=== PATIENT | male | born 1985 ===

== ENCOUNTER 2017-07-13 06:12 | Observation (INO) | payer BC ==
[2017-07-13 06:12] VITALS: BMI 24.0
[2017-07-13] MEDS ORDERED: Absorbable Gelatin Sponge Size 100 ONE (08:01)
[2017-07-13] MEDS ORDERED: Bacitracin Ointment 30 GM TUBE ONE (08:01)
[2017-07-13] MEDS ORDERED: Thrombin Topical 5,000 Int Units Spray Kit ONE (08:02)
--- NOTE | 2017-07-13 08:13 | ED PDOC ---
Lower Extremity Pain/Injury Time Seen by Provider: 07/13/17 07:20 Chief Complaint (Nursing): Lower Extremity Problem/Injury Chief Complaint (Provider): Ankle Pain History Per: Patient History/Exam Limitations: no limitations Onset/Duration Of Symptoms: Other (x1 month) Current Symptoms Are (Timing): Still Present Additional Complaint(s): 31 year old male presents to ED with complaints of left ankle pain x1 month and has no past medical history. Patient states that at time of onset he had sprained his left ankle and resulting XR showed no fracture. Reports that outpatient MRI shows a lateral ligamental tear in the left ankle, and that it has become difficult to bear weight. PCP: Jw Rosario III - Ankle/Foot Description Of Injury: Twisted Past Medical History Reviewed: Historical Data, Nursing Documentation, Vital Signs Vital Signs: Last Vital Signs Temp 97.9 F 07/13/17 06:37 Pulse 66 07/13/17 06:37 Resp 16 07/13/17 06:37 BP 143/91 H 07/13/17 06:37 Pulse Ox 97 07/13/17 06:37 - Medical History PMH: No Chronic Diseases - Surgical History Surgical History: No Surg Hx - Family History Family History: States: Unknown Family Hx - Living Arrangements Living Arrangements: With Family - Immunization History Hx Tetanus Toxoid Vaccination: No Hx Influenza Vaccination: No Hx Pneumococcal Vaccination: No - Home Medications Home Medications: Ambulatory Orders Medication Instructions Recorded Ibuprofen [Motrin] 400 mg PO ONCE PRN 06/21/17 oxyCODONE/Acetaminophen [Percocet 1 ea PO Q4H PRN #30 tab 07/13/17 5/325 mg Tab] - Allergies Allergies/Adverse Reactions: Allergies Allergy/AdvReac Type Severity Reaction Status Date / Time No Known Allergies Allergy Verified 07/13/17 06:37 Wells Criteria for PE - Wells Criteria for Pulmonary Embolism Clinical Signs and Symptoms of DVT: No P.E is #1 Diagnosis, or Equally Likely: No Heart Rate >100: No Immobilization at least 3 days;Surgery previous 4 weeks: No Previous, objectively diagnosed PE or DVT: No Hemoptysis: No Malignancy w/treatment within 6 months, or palliative: No Total Score: 0 Review of Systems ROS Statement: Except As Marked, All Systems Reviewed And Found Negative Musculoskeletal: Positive for: Other (Left ankle pain) Physical Exam - Reviewed Nursing Documentation Reviewed: Yes Vital Signs Reviewed: Yes - Physical Exam Appears: Positive for: Non-toxic, No Acute Distress Extremity: Positive for: Tenderness (tenderness to left ankle and to left lateral malleolus), Capillary Refill (<2 seconds). Negative for: Normal ROM ( painful ROM to left ankle), Deformity Neurologic/Psych: Positive for: Alert, Oriented. Negative for: Motor/Sensory Deficits - ECG O2 Sat by Pulse Oximetry: 97 (RA) Pulse Ox Interpretation: Normal Medical Decision Making Medical Decision Makin Initial impression: ankle sprain, ligamental tear of left ankle Initial plan: * Call Dr. Rosario XR LEFT ANKLE FINDINGS 06/21/2017 Prominent lateral malleolar soft tissue swelling. No evidence of acute displaced fracture or dislocation. Impression: Prominent lateral malleolar soft tissue swelling. If pain persists, consider MRI. [address] Rosario, who will admit patient under his service. Scribe Attestation: Documented by Edwige Alvarez acting as a scribe Artemio Negrete MD. Scribe Attestation: All medical record entries made by the Scribe were at my direction and personally dictated by me. I have reviewed the chart and agree that the record accurately reflects my personal performance of the history, physical exam, medical decision making, and the department course for this patient. I have also personally directed, reviewed, and agree with the discharge instructions and disposition. Disposition - Clinical Impression Clinical Impression: Ankle fracture - Patient ED Disposition Is Patient to be Admitted: Yes Discussed With : Jw Rosario III Doctor Will See Patient In The: Hospital Counseled Patient/Family Regarding: Studies Performed, Diagnosis - Disposition Disposition Time: 08:15 Condition: FAIR - Pt Status Changed To: Hospital Disposition Of: Observation (OBS OR) - POA Present On Arrival: Falls Or Trauma
--- NOTE | 2017-07-13 08:15 | CP.SDSHP ---
Same Day Surgery H & P - History Proposed Procedure: Left ankle ligament reconstruction Pre-Op Diagnosis: Left ankle anterior talofibular ligament tear - Previous Medical/Surgical History Comments: Denies PMH/PSH - Allergies Allergies: Allergies No Known Allergies Allergy (Verified 07/13/17 06:37) - Physical Exam Vital Signs: Vital Signs 07/13/17 06:37 Temperature 97.9 F Pulse Rate 66 Respiratory 16 Rate Blood Pressure 143/91 H O2 Sat by Pulse 97 Oximetry Mental Status: Alert & Oriented x3 Heart: WNL Lungs: WNL - {Optional Preform as Required} Integument: WNL Ortho: Other (TTP lateral ankle, +DP/PT Pulses, sensation intact, minimal swelling) Other Pertinent Findings: imaging at outside facility - Impression Impression: 31M with severe left ankle pain, inability to ambulate with left ankle ATFL rupture for ankle ligament reconstruction. Smoking cessation advised. [place] [employer] patient report reviewed, no CDS. Patient counseled on the risks of addiction, physical or psychological dependence, and overdose associated with opioid drugs and the danger of taking opioid drugs with alcohol and other central nervous system depressants, and cautioned patient on storage and disposal Pt. Evaluated Today:Candidate for Anesthesia & Procedure: Yes - Date & Time Date: 07/13/17 Time: 08:18 Short Stay Discharge - Short Stay Discharge Admitting Diagnosis/Reason for Visit: LEFT ANKLE PAIN Disposition: HOME/ ROUTINE Past Patient History - Past Social History Smoking Status: Heavy Smoker > 10 Cigarettes Daily - PSYCHIATRIC Hx Substance Use: No - SURGICAL HISTORY Hx Surgeries: No - ANESTHESIA Hx Anesthesia: No
[2017-07-13] MEDS ORDERED: Succinylcholine 200 mg/10 ml Inj IV ONE (08:24)
[2017-07-13] MEDS ORDERED: Propofol 10 mg/ml Inj (20 ML) ONE ×2 (08:24→10:59)
[2017-07-13] MEDS ORDERED: Ropivacaine 0.5% 30ML IV ONE (08:30)
[2017-07-13] MEDS ORDERED: Lactated Ringer's 1,000 ML IV ONE (08:45)
--- NOTE | 2017-07-13 08:49 | CP.PCM.HP ---
History of Present Illness - History of Present Illness History of Present Illness: Orthopedic consultation Dr. Rosario 31M complains of left ankle pain x 3 weeks after twisting his ankle. He presents to ER complaining of severe left ankle pain and inability to ambulate. He has been using crutches. Present on Admission - Present on Admission Any Indicators Present on Admission: No Review of Systems - Review of Systems All systems: reviewed and no additional remarkable complaints except - Musculoskeletal Musculoskeletal: As Per HPI Past Patient History - Past Medical History & Family History Past Medical History?: No - Past Social History Smoking Status: Heavy Smoker > 10 Cigarettes Daily - PSYCHIATRIC Hx Substance Use: No - SURGICAL HISTORY Hx Surgeries: No - ANESTHESIA Hx Anesthesia: No Meds Allergies/Adverse Reactions: Allergies Allergy/AdvReac Type Severity Reaction Status Date / Time No Known Allergies Allergy Verified 07/13/17 06:37 Physical Exam - Constitutional Appears: Well, No Acute Distress - Head Exam Head Exam: ATRAUMATIC - Respiratory Exam Respiratory Exam: NORMAL BREATHING PATTERN - Expanded Lower Extremities Exam Left Ankle exam: tenderness Neuro vacular tendon exam: no vascular compromise (+DP/PT pulses, sensation intact) - Neurological Exam Neurological exam: Alert, Oriented x3 - Psychiatric Exam Psychiatric exam: Normal Affect, Normal Mood - Skin Skin Exam: Dry, Intact, Normal Color, Warm Results - Vital Signs Recent Vital Signs: Last Vital Signs Temp 97.9 F 07/13/17 06:37 Pulse 66 07/13/17 06:37 Resp 16 07/13/17 06:37 BP 143/91 H 07/13/17 06:37 Pulse Ox 97 07/13/17 08:40 Assessment & Plan (1) Sprain of anterior talofibular ligament of left ankle Assessment and Plan: imaging at outside facility patient found to have ATFL rupture d/w Dr. Rosario NPO for ligament reconstruction PT NWB elevation ice for OR Smoking cessation advised. [place] [employer] patient report reviewed, no CDS. Patient counseled on the risks of addiction, physical or psychological dependence, and overdose associated with opioid drugs and the danger of taking opioid drugs with alcohol and other central nervous system depressants, and cautioned patient on storage and disposal Status: Acute
[2017-07-13] MEDS ORDERED: Rocuronium 10 mg/ml (5 ml) ONE (09:08)
[2017-07-13] MEDS ORDERED: Esmolol 100 mg/10ml Inj IV ONE (09:24)
[2017-07-13] MEDS ORDERED: Desflurane Inhalation Anesthetic Liq (240 ml) ONE (09:24)
[2017-07-13] MEDS ORDERED: Bacitracin OINT 15GM TOP ONE ×2 (09:35→10:50)
[2017-07-13] MEDS ORDERED: Neostigmine 1:1000 (1 mg/ml) Inj ONE (10:48)
[2017-07-13] MEDS ORDERED: Naloxone 0.4 mg/ml Inj (Adult) ONE (11:16)
[2017-07-13] MEDS ORDERED: Oxycodone/Acetaminophen 5/325 mg Tab PO PRN (11:24)
[2017-07-13] MEDS ORDERED: HYDROmorphone 0.5 mg/0.5 ml ISec IVP PRN (11:28)
--- NOTE | 2017-07-13 11:28 | PCM.SURG1 ---
Surgeon's Initial Post Op Note - Surgeon's Notes Surgeon: Marlene Senior Svp: VALENTIN Whitehead Type of Anesthesia: General Endo, Block Regional Anesthesia Administered By: DR ceballos Pre-Operative Diagnosis: gr 3 rupture anterior talofibular ligament L ankle Operative Findings: complete grade 3 rupture Anterior talofibular ligament rupture Post-Operative Diagnosis: same Operation Performed: Primary repair Anterior talofibular ligament rupture. ankle arthrotomy and debridement. \evaluation/manipuilatin of L ankle under anaestheisa/fluoroscopy. \applx short arm postreior splint Specimen/Specimens Removed: N/A Estimated Blood Loss: EBL {In ML}: 5 Blood Products Given: N/A Drains Used: No Drains Post-Op Condition: Good Date of Surgery/Procedure: 07/13/17 Time of Surgery/Procedure: 09:35 (time in room/anaesthesia indcution time8:45)
--- NOTE | 2017-07-13 11:28 | PCM.ANESB2 ---
Popliteal Nerve Block - Popliteal Nerve Block Date of Procedure: 07/13/17 Anesthesiologist: lin Pre-Procedure Diagnosis: L ankle sprain Post-Procedure Diagnosis: same Procedure Performed: Popliteal Nerve Block Left - Procedure Popliteal Nerve Block: This procedure was explained to the patient that it is for post-operative pain management. Consent was obtained after a thorough discussion with the patient regarding the benefits and possible complications of local anesthetic block of the sciatic nerve at the popliteal level. The patient was brought to the operating room and standard monitors are applied. Time-out was held with the circulating nurse to confirm the correct surgery and the appropriate block. After applying oxygen by nasal cannula and administering IV Sedation, patient's operative leg was gently raised and supported and the groove in between the biceps femoris and vastus lateralis muscles was carefully palpated. The skin approximately 8cm above the popliteal crease was then marked. The ultrasound transducer was then applied to the posterior thigh approximately 8cm above the popliteal crease in the transverse plane and the sciatic nerve before its division was visualized lateral to the popliteal artery and in between the bicep femoris and semimembranosus/semitendinosus muscles. After identification, the lateral portion of the thigh was prepped with Betadine solution three times and Lidocaine 1% was injected subcutaneously for topical anesthesia. At this point, a # 21 gauge Stimuplex insulated 4 inch needle was inserted into pre-marked area and advanced in a perpendicular direction. The needle was inserted above the ultrasound transducer in-plane towards the sciatic nerve in a [id number] direction. Needle advancement was performed carefully under direct ultrasound visualization. Nerve stimulator was used and dorsiflexion of the left foot was elicited at a current of __2.0___ MA. After repeated negative aspiration, __1___cc of 0.5 % __ropivicaine was injected and this was flowed with __19____ cc of __0.5____% ___ropivicaine ___. Under ultrasound guidance the local anesthetics were observed surrounding sciatic nerve . The needle was removed intact and sterile dressing was applied. The patient tolerated the popliteal nerve block well with stable vital signs and was subsequently prepared for the surgery.
--- NOTE | 2017-07-13 12:54 | RAD ---
PROCEDURE: Left Ankle Radiographs. Three views of the left ankle obtained with overlying fiberglass nidia splint that partially obscures fine soft tissue and bone detail COMPARISON: No prior study available for comparison HISTORY: Pt in PACU the, s/p ankle reconstruction. FINDINGS: Current study reveals metallic skin closure jeni overlying the distal left fibula and extending anteriorly overlying the lateral margins of the bones of the midfoot. Mild soft tissue swelling. Small amount subcutaneous air. Clinical correlation with surgical history. IMPRESSION: Postoperative changes lateral aspect left ankle as described. No evidence of acute displaced fracture nor dislocation. Heart
[2017-07-13 13:39] VITALS: RESP 18
[2017-07-13 16:47] VITALS: BP 128/68; PULSE 74; TEMP 97.8
--- NOTE | 2017-07-13 17:10 | RAD ---
PROCEDURE: Intraoperative Fluoroscopy. HISTORY: LEFT ANKLE FINDINGS: Fluoroscopic assistance was provided. 22.2 seconds fluoroscopy time utilized during this procedure. Please refer to the operative report from STEPHANIE Luo.
--- NOTE | 2017-07-14 10:09 | OP ---
PROCEDURE DATE: 07/13/2017 LOCATION: [facility]. PREOPERATIVE DIAGNOSIS: Grade 3 rupture anterior talofibular ligament, left ankle. POSTOPERATIVE DIAGNOSIS: Grade 3 rupture anterior talofibular ligament, left ankle. PROCEDURES PERFORMED: 1. Primary repair anterior talofibular ligament - modified Brostrom Crain procedure. 2. Reinforcement of anterior talofibular ligament repair with internal brace technology. 3. Arthrotomy and debridement of left ankle. 4. Application of posterior splint, short leg. 5. Positioning of fluoroscope, interpretation of video images. SURGEON: Jw Rosario MD FIRST ASSISTANTS: 1. Sandro Soria DPM, first year podiatry resident. 2. Cheri Merino, certified registered nursing front end assistant. It should be noted that both Dr. Sandro Soria resident and Cheri Merino, the certified registered nursing front end assistant, are both necessary to the accomplishment of the procedure. ANESTHESIA: General endotracheal anesthesia. ANESTHESIOLOGIST: Bairon Lara MD COMPLICATIONS: No complications. DRAINS: No drains. 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 The patient was discharged from Emergency Room and presents again to the Emergency Room now with increasing pain and inability to ambulate. The patient was admitted. Pros, cons, risks and benefits of surgical approach were discussed. The concept that the patient is young 31-year-old aggressive and active indicate the surgical repair of the ATFL, not to repair the ATFL at this point would lead to early arthritic change and recurrent gait disturbance with ankle instability. Pros, cons, risks, and benefits of surgery approach were discussed. The possibility of recurrent instability, the possibility of secondary or tertiary surgery, possibility of mechanical failure, infection, and thromboembolic disease are discussed at length. Possibility of infection was discussed. The patient can no longer withstand the discomfort represented to the Emergency Room with severe discomfort and presents now for the primary repair. OPERATIVE PROCEDURE: After having obtained informed consent, after having identified side, site and procedure and critical pause/time-out after the satisfactory induction of general endotracheal anesthesia by the anesthesiologist, the patient identified as Jordan Tinajero in the supine position with all bony prominences well padded, the left lower extremity was prepped and free draped in usual fashion for lower extremity surgery. A bolster is placed under the knee and under the ankle. Exsanguination of the limb using a 6-inch Esmarch bandage was accomplished. Exsanguinating the limb using a 6-inch Esmarch bandage, tourniquet, which had been applied, was inflated to 350 mmHg. The Arthrex internal brace technology is used because of the patient's young age and the nature and quality of the ligamentous tissue, the injury is out approximately 2 weeks old. Incision was described in the posterior aspect of the fibula extending curvilinearly superficial to the anterior talofibular ligament where there was a palpable defect and curving anteriorly so as to be able expose the joint. The skin incision was carried down through the skin and subcutaneous tissue. Hemostasis was controlled with the electrocautery. This having been accomplished, the incision was described favoring the posterior aspect of the fibula. The periosteum was incised and elevated from the anterior-posterior aspects of the fibula. At this point in time, the rupture was found be evident. Dissection is carried around into the ankle joint. Ankle arthrotomy was accomplished at this point in time using a feathering technique. The extensor retinaculum was kept intact as the dissection is carried out superficially to that plane. This having been accomplished, the ruptured ATFL was identified. At this point in time, with inversion of the ankle, the ankle joint was exposed and thorough irrigation and debridement of the ankle joint was accomplished. There was found to be evidence of fibrin clot and some collagenous strands of the ligament in the joint. These were carefully removed and the wound was thoroughly irrigated. The neurovascular bundle was identified and protected. This having been accomplished, the wound was thoroughly irrigated. Periosteum dissection was carried out anteriorly and posteriorly and again the ligament was identified. The primary repair of the ATFL of the so-called Brostrom technique was carried out initially in the following fashion. Drilling was accomplished on both the anterior and posterior aspects of the fibula and inferior aspect. Drilling was accomplished followed by tapping and the appropriate size anchors were impacted with 2-0 FiberWire suture. This having been accomplished, the dissection is carried out to the talus under the surgeon's direction. The fluoroscope was positioned, video images were generated, and therapeutic decisions were made therefrom. This having been accomplished, the origin of the anterior talofibular ligament was identified and the area in the talus was identified and drilling was accomplished to accept the SwiveLock anchor. The drill was approximately 30-40 degrees to the axis of the leg and approximately 10 degrees posterior to anterior. Drilling was accomplished with the automatic stop. Tapping was accomplished and at this point in time, the SwiveLock was introduced. The SwiveLock anchor had been loaded with the FiberTape and this was introduced into the talus. This having been accomplished, the same procedure was accomplished on the fibula. Drilling was accomplished proximal and bisecting the anterior and posterior anchors that had already been implanted in the fibula. The drilling was accomplished, tapping and the appropriate size SwiveLock anchor was introduced. This having been accomplished, the repair of the anterior talofibular ligament primarily the so-called Brostrom aspect of the repair was accomplished with the two nonabsorbable FiberWire sutures with the ankle in neutral dorsiflexion with no inversion or eversion. At this point in time, the anterior talofibular ligament is repaired. This having been accomplished, from the distal aspect, the FiberTape was placed through the ligament so as the internal brace will be external to the ATFL repair. This having been accomplished, the SwiveLock anchor was loaded and was placed in the fibula. This having been accomplished, the wound was thoroughly irrigated. The SwiveLock anchor was introduced and again with the ankle in neutral, the repair was accomplished. The repair was found to be excellent. Further repair was accomplished with incorporating the extensor retinaculum into the repair thus closing the joint as well. The extensor retinaculum was used to imbricate in a [id number] fashion, the anterior talofibular ligament repair and the internal brace augmentation with the Arthrex FiberTape. The wound was thoroughly irrigated. At this point in time, verification of position was confirmed on image intensification views. The position was found to be acceptable. The wound was thoroughly irrigated. Closure was in layers with interrupted Vicryl and jeni. A well-padded Hay-Ferguson compression dressing and posterior splint were applied. This having been accomplished, the patient is stable in recovery and again verification of position had been accomplished on image intensification views. Jw Rosario MD [facility] # [id number]
[2017-07-14 21:38] VITALS: O2SAT 97
== END 2017-07-13 16:50 | disposition home or self-care (01) ==
LOC: H.ER 06:12 → H.ERHOLD 08:15 → H.ER 08:39
PROVIDERS: ADMIT Orthopaedic Surgery; ATTEND Orthopaedic Surgery
DX: S93.492A Sprain of other ligament of left ankle, initial encounter (principal); F17.210 Nicotine dependence, cigarettes, uncomplicated; X50.1XXA Overexertion from prolonged static or awkward postures, initial encounter; Y93.9 Activity, unspecified; Y92.9 Unspecified place or not applicable
CPT/HCPCS: 27695; 73610; 97116; 97161; 99283; C1713; G0378; G8978; G8979; G8980; J0330; J0690; J2310; J2704; J2710; J3010; J7120

== ENCOUNTER 2017-07-20 20:02 | Emergency (ER) | payer BC ==
[2017-07-20 20:02] VITALS: BMI 24.0
[2017-07-20 21:17] VITALS: BP 149/93; PULSE 133; RESP 16; TEMP 99.1; O2SAT 96
[2017-07-20 22:35] LABS: BASO # 0.1 K/uL (0.0-0.2); BASO % 1.3 % (0.0-2.0); EOS # 0.4 K/uL (0.0-0.7); EOS % 4.1 % (0.0-4.0); HEMOGLOBIN 15.6 g/dL (12.0-18.0); LYMPH % 21.9 % (20.0-40.0); MEAN CELL VOLUME 90.4 fl (80.0-94.0); MEAN CORPUSCULAR HEMOGLOBIN 30.9 pg (27.0-31.0); MEAN CORPUSCULAR HGB CONC 34.2 g/dL (33.0-37.0); MEAN PLATELET VOLUME 7.9 fl (7.2-11.7); MONO # 0.7 K/uL (0.0-0.8); MONO % 7.7 % (0.0-10.0); NEUT # 5.8 K/uL (1.8-7.0); NRBC % 0.1 % (0.0-0.0); RBC 5.05 Mil/uL (4.40-5.90); RED CELL DISTRIBUTION WIDTH 12.8 % (11.5-14.5)
[2017-07-20 22:45] LABS: ALB/GLOB RATIO 1.2 (1.0-2.1); ALBUMIN 4.2 g/dL (3.5-5.0); ALT/SGPT 76 U/L (21-72); AST/SGOT 40 U/L (17-59); BLOOD UREA NITROGEN 15 mg/dl (9-20); CALCIUM 9.2 mg/dL (8.4-10.2); GFR AFRICAN-AMERICAN > 60; GFR NON-AFRICAN AMERICAN > 60
--- NOTE | 2017-07-20 22:54 | CP.PCM.CON ---
History of Present Illness - History of Present Illness History of Present Illness: Orthopedic consult note for Dr. Rosario: 31 y/o male with no known pmhx seen at bedside in the ED 1 week s/p left ankle lateral stabilization with ankle arthrotomy. Patient states that over the weekend he developed tingling and burning in his toes and smelled a foul odor coming from his foot. Patient states that he was very concerned so he came to the ED. Patient's posterior splint to the left lower extremity remains intact with mild sanguinous strike through noted on bandage. Patient states that he has not been putting any weight on the foot. Patient denies any acute trauma. Patient states that he last took percocet on thursday and has not taken any since because it upset his stomach. Patient denies any other complaints at this time. Denies n/f/v/d/sob. Review of Systems - Constitutional Constitutional: As Per HPI Past Patient History - Past Medical History & Family History Past Medical History?: No - Past Social History Smoking Status: Heavy Smoker > 10 Cigarettes Daily - PSYCHIATRIC Hx Substance Use: No - SURGICAL HISTORY Hx Surgeries: No - ANESTHESIA Hx Anesthesia: No Meds Home Medications: Home Medication List Medication Instructions Recorded Confirmed Type Clindamycin [Cleocin] 300 mg PO TID #21 cap 07/20/17 Rx traMADol [Ultram] 50 mg PO TID PRN #15 tab 07/20/17 Rx Allergies/Adverse Reactions: Allergies Allergy/AdvReac Type Severity Reaction Status Date / Time No Known Allergies Allergy Verified 07/13/17 06:37 Physical Exam - Constitutional Appears: Non-toxic, No Acute Distress - Extremities Exam Additional comments: left lower extremity focused: vasc: palpable pedal pulses- DP 2/4, PT nonpalpable due to edema, TG warm to cool, CFT < 3 sec to all digits neuro: grossly intact, sensory exam WNL derm: surgical incision site well coapted with jeni intact, slight hypopigmented area surrounding the incision site, no active bleeding noted along lateral incision site, moderate nonpittng edema to left lower extremity, no erythema, no echymoses, no ascending cellulitis,no acute clinical signs of infection ortho: moderate pain on palpation along the surgical incision site, able to dorsiflex and wiggle toes, muscle power unobtainable due to guarding - Neurological Exam Neurological exam: Alert, Oriented x3 Results - Vital Signs Recent Vital Signs: Last Vital Signs Temp 99.1 F 07/20/17 21:14 Pulse 133 H 07/20/17 21:14 Resp 16 07/20/17 21:14 BP 149/93 H 07/20/17 21:14 Pulse Ox 96 07/20/17 21:14 - Labs Result Diagrams: 07/20/17 22:25 07/20/17 22:25 Labs: Laboratory Results - last 24 hr 07/20/17 07/20/17 07/20/17 22:25 22:25 22:25 WBC 9.0 RBC 5.05 Hgb 15.6 Hct 45.6 MCV 90.4 MCH 30.9 MCHC 34.2 RDW 12.8 Plt Count 348 MPV 7.9 Neut % (Auto) 65.0 Lymph % (Auto) 21.9 [place] % (Auto) 7.7 Eos % (Auto) 4.1 H Baso % (Auto) 1.3 Neut # (Auto) 5.8 Lymph # (Auto) 2.0 [place] # (Auto) 0.7 Eos # (Auto) 0.4 Baso # (Auto) 0.1 Sodium 144 Potassium 4.3 Chloride 105 Carbon Dioxide 26 Anion Gap 17 BUN 15 Creatinine 1.2 Est GFR ( Amer) > 60 Est GFR (Non-Af Amer) > 60 Random Glucose 102 Lactic Acid 1.3 Calcium 9.2 Total Bilirubin 0.6 AST 40 ALT 76 H Alkaline Phosphatase 61 Total Protein 7.9 Albumin 4.2 Globulin 3.6 Albumin/Globulin Ratio 1.2 Assessment & Plan - Assessment and Plan (Free Text) Assessment: 31 y/o male with no known pmhx seen at bedside in the ED for intractable pain 1 week s/p left ankle stabilization/ ankle arthrotomy Plan: patient evaluated and chart reviewed discussed in detail with attending Dr. Rosario labs and vitals reviewed; afebrile, WBC 9.0 X rays of left ankle reviewed and show no fracture or dislocation, no soft tissue abnormalities applied AO splint to left lower extremity with betadine wet to dry, 4x4 gauze, kerlix, webril, ARMANI patient to remain nonweightbearing with crutches Rx oral abx patient instructed to follow up with Dr. Rosario as outpatient on Thursday
[2017-07-20] MEDS ORDERED: Povidone Iodine Topical 10% Sol ONE (23:11)
--- NOTE | 2017-07-20 23:11 | ED PDOC ---
Lower Extremity Pain/Injury Time Seen by Provider: 07/20/17 21:21 Chief Complaint (Nursing): Lower Extremity Problem/Injury Chief Complaint (Provider): LEFT ankle pain Past Medical History Vital Signs: Last Vital Signs Temp 99.1 F 07/20/17 21:14 Pulse 133 H 07/20/17 21:14 Resp 16 07/20/17 21:14 BP 149/93 H 07/20/17 21:14 Pulse Ox 96 07/20/17 21:14 - Family History Family History: States: Unknown Family Hx - Immunization History Hx Tetanus Toxoid Vaccination: No Hx Influenza Vaccination: No Hx Pneumococcal Vaccination: No - Home Medications Home Medications: Ambulatory Orders Medication Instructions Recorded Ibuprofen [Motrin] 400 mg PO ONCE PRN 06/21/17 oxyCODONE/Acetaminophen [Percocet 1 ea PO Q4H PRN #30 tab 07/13/17 5/325 mg Tab] traMADol [Ultram] 50 mg PO TID PRN #15 tab 07/20/17 - Allergies Allergies/Adverse Reactions: Allergies Allergy/AdvReac Type Severity Reaction Status Date / Time No Known Allergies Allergy Verified 07/13/17 06:37 - Laboratory Results Result Diagrams: 07/20/17 22:25 07/20/17 22:25 - ECG O2 Sat by Pulse Oximetry: 96 Disposition - Clinical Impression Clinical Impression: Postoperative pain of extremity - Disposition Referrals: Jw Rosario III, MD [Staff Provider] - 07/24/17 Disposition: Routine/Home Disposition Time: 23:11 Condition: STABLE Prescriptions: traMADol [Ultram] 50 mg PO TID PRN #15 tab PRN Reason: SEVERE PAIN ONLY Instructions: Postoperative Pain (DC)
[2017-07-20 23:21] LABS: INR 1.1 (0.9-1.2); PARTIAL THROMBOPLASTIN TIME 30.8 Seconds (25.6-37.1); PROTHROMBIN TIME 12.4 Seconds (9.8-13.1)
--- NOTE | 2017-07-21 09:39 | RAD ---
PROCEDURE: Left Ankle Radiographs. HISTORY: LEFT ankle pain COMPARISON: Left ankle radiographs dated 07/13/2017 FINDINGS: BONES: No acute fracture. JOINTS: Ankle mortise maintained. Talar dome intact SOFT TISSUES: Postsurgical changes adjacent to the lateral malleolus. OTHER FINDINGS: None. IMPRESSION: Postsurgical changes along the lateral ankle.
== END 2017-07-20 23:44 | disposition home or self-care (01) ==
LOC: H.ER 20:02
DX: G89.18 Other acute postprocedural pain (principal); F17.210 Nicotine dependence, cigarettes, uncomplicated; Z98.890 Other specified postprocedural states